=== PATIENT | female | born 1985 | race Caucasian/White ===

== ENCOUNTER 2016-03-23 20:20 | Inpatient (IN) | payer MEDICAID ==
[~2016-03-23] VITALS: Ht 157.5 cm; Wt 88.4 kg
[~2016-03-23 20:20] MED LIST: FERR27TA PO; PREN1TAB49 PO; [UNRECOGNIZED DRUG - CODE] PO
[2016-03-23 21:01] VITALS: BP 129/79; PULSE 84; RESP 20; Ht 157.5 cm; Wt 88.4 kg
[2016-03-23 21:22] LABS: URINE BLOOD (Dip) POC Negative (NEGATIVE)
[2016-03-23] MEDS ORDERED: ACETAMINOPHEN 325 MG TAB PO ONE (22:00)
--- NOTE | 2016-03-23 23:14 | RADRPT ---
PROCEDURE: US evaluation of amniotic fluid volume. CLINICAL INDICATION: Pelvic pain. TECHNIQUE: Multiple sonographic images of the gravid uterus were obtained utilizing carlson-scale minnie ging. Sagittal and transverse images were obtained. The images were reviewed on a PACS workstation . JOANN was measured. COMPARISON: No prior studies are available for comparison. FINDINGS: There is a single live intrauterine . heart rate is 134 beats per minute. Position is cephalic. Placenta is fundal grade III with no abruption or previa. JOANN is 12.0 cm. (Normal = 5-20 cm.) IMPRESSION: 1. JOANN is 12.0 cm. RPTAT: QQ .Maxime Stark MD, MD Date Time Electronically viewed and signed by .Maxime Stark MD, on 03/23/2016 23:14 .R/
[2016-03-23] MEDS ORDERED: IBUPROFEN 600 MG TAB PO PRN (23:30)
[2016-03-23] MEDS ORDERED: OXYTOCIN 30 UNITS/LR 500 ML IV SCH ×2 (23:30)
[2016-03-23] MEDS ORDERED: MISOPROSTOL 200 MCG TAB PR PRN (23:30)
[2016-03-23] MEDS ORDERED: BUTORPHANOL 2 MG INJ IV PRN (23:30)
[2016-03-23] MEDS ORDERED: LACTATED RINGER'S 1,000 ML IV PRN (23:30)
[2016-03-23] MEDS ORDERED: CARBOPROST 250 MCG INJ IM PRN (23:30)
[2016-03-23] MEDS ORDERED: LIDOCAINE 1% (MPF) 30 ML INJ INJ PRN (23:30)
[2016-03-23] MEDS ORDERED: METHYLERGONOVINE 0.2 MG INJ IM PRN (23:30)
[2016-03-23] MEDS ORDERED: OXYTOCIN 30 UNITS/LR 500 ML IV PRN (23:30)
[2016-03-24 00:15] LABS: BASOPHILS % 0.5 % (0.0-2.0); EOSINOPHILS # 0.2 10^3/ul (0.0-0.5); EOSINOPHILS % 1.7 % (0.0-7.0); HEMATOCRIT 35.7 % (37.0-47.0); LYMPHOCYTES # 2.3 10^3/ul (0.8-2.9); LYMPHOCYTES % 22.2 % (15.0-51.0); MEAN CORPUSCULAR HGB CONC 33.7 g/dl (32.0-37.0); MEAN CORPUSCULAR VOLUME 88.9 fl (82.0-101.0); MEAN PLATELET VOLUME 9.4 fl (7.4-10.4); MONOCYTE # 0.6 10^3/ul (0.3-0.9); MONOCYTES % 5.4 % (0.0-11.0); NEUTROPHIL # 7.1 10^3/ul (1.6-7.5); NEUTROPHILS % 70.2 % (39.0-77.0); PLATELET COUNT 141 10^3/UL (140-440); RED BLOOD COUNT 4.01 10^6/ul (4.20-5.40); RED CELL DISTRIBUTION WIDTH 13.7 % (11.5-14.5); UNCORRECTED WBC 10.2 10^3/ul (4.8-10.8); WHITE BLOOD COUNT 10.2 10^3/ul (4.8-10.8)
[2016-03-24 00:31] LABS: CONDITION 1; INR 0.95; PROTIME 12.7 Sec (12.2-14.2)
[2016-03-24 00:32] LABS: PARTIAL THROMBOPLASTIN TIME 27.8 Sec (25.0-35.0)
[2016-03-24] MEDS: LACTATED RINGER'S 1,000 ML IV SCH ×4 (01:28→18:28)
[2016-03-24] MEDS ORDERED: NALOXONE (0.4 MG/ML) INJ IV PRN (01:30)
[2016-03-24] MEDS ORDERED: DIPHENHYDRAMINE 50 MG INJ IV PRN (01:30)
[2016-03-24] MEDS ORDERED: ONDANSETRON 4 MG INJ IV PRN (01:30)
[2016-03-24] MEDS ORDERED: FENTAnyl 2MCG/ML-ROPIV 0.2% 100 ML ONE (01:36)
[2016-03-24] MEDS: FENTAnyl 2MCG/ML-ROPIV 0.2% 100 ML BAG EPI SCH ×3 (03:33→16:24)
--- NOTE | 2016-03-24 05:49 | HP ---
Date/Time of Note Date/Time of Note DATE: 03/24/16 TIME: 05:43 OB - History Hx of Present Free Text/Dictation 30 Year-old with SIUP at 393/7 presents with a chief complaint of ucs. She has been receiving her care with *. She states good movement. She denies nausea, vomiting, shortness of breath, chest pain, and abdominal pain between contractions, headache, visual changes, vaginal bleeding or LOF. Risk factor: - Low ROBERTO-A : 4 Para: 2 Spontaneous : 1 Therapeutic : 0 Care: Good Care Ultrasounds: Normal mid trimester US Obstetrical Complications: Other (low ROBERTO-A) Medical Complications: None, Gastrointestinal Past Family/Social History * Past Medical, Surgical, Family and Obstetric Histories reviewed from chart. OB Admission Exam Vital Signs Vital Signs Vital Signs Date Time Temp Pulse Resp B/P Pulse Ox O2 Delivery O2 Flow Rate FiO2 03/23/16 21:01 98.4 84 20 129/79 Room Air Physical Exam HEENT: WNL Heart: Rhythm Normal Lungs: Clear Abdomen: WNL Extremities: Normal Reflexes: Normal Cervical Dilatation: 3cm Effacement: 75% Station: -2 Membranes: Intact Heart Rate: 140's Accelerations: Accelerations Present Decelerations: No Decelerations Varibility: Moderate Contractions on Admission: < 5 Minutes Apart Last 72 hours Lab Results CBC & BMP 03/23/16 23:35 OB Assessment/Plan Other plan: 23 Year-old with SIUP at 39 2/7 in active labor - FHR: No sign of metabolic acidosis- Category I - Continuous EFM, toco - CBC, blood type and screen - Analgesia options with R/B/A discussed in detail with patient - Epidural per patient request - Please see the orders Admission, procedures, expectations, risks and possible complications have been discussed in detail with the patient. Risk of vaginal delivery including but not limited to bleeding, infection, cervical laceration, placental retention, injury to fetus, blood transfusion, blood transfusion related infection, risk of anesthesia, adhesion, cervical laceration, episiotomy/laceration, possible delivery with risk of bleeding, infection, injury to other organs ( bowel, bladder, ureter, vessels, nerves), injury to fetus, blood transfusion, blood transfusion related infection, risk of anesthesia, scar and hernia formation, needs for future , removal of uterus or any other indicated surgery discussed with the patient. She expressed understanding and repeats the risks. All of her questions were answered; all appropriate consents will be signed. PHYSICIAN'S VERIFICATION OF INFORMED CONSENT-NVD The patient was counseled regarding the procedure, its indications, risks, potential complications and alternatives and any questions were answered. Consent was obtained. PLANNED PROCEDURE/TREATMENT: Vaginal delivery with possible vacuum/forceps delivery episiotomy, repair of laceration possible delivery PHYSICIAN'S VERIFICATION OF INFORMED CONSENT FOR BLOOD TRANSFUSION. There is a reasonable possibility that blood transfusion will be necessary as a result of the patient's procedure. I have discussed the following with the patient/patient's legal product sales representative: An explanation of the benefits and risks of the transfusion of blood or blood products and the possible alternatives. Al questions have been answered to the patient's/patients legal representatives satisfaction. INFORMED CONSENT: The patient has been informed of: - The nature of the proposed care, treatment, services, medications, interventions or procedures. - Potential benefits, risks or side effects, including potential problems related to recuperation. - The likelihood of achieving care treatment and service goals. - Reasonable alternatives to the proposed care, treatment and service. - The relevant risks, benefits and side effects related to alternatives, including the possible results of not receiving care, treatment and services. - When indicated, any limitations on the confidentiality of information learned from or about the patient. - If appropriate, the risks, benefits and alternatives of the drugs to be used for sedation/analgesia including moderate sedation. - If appropriate, patient has been provided information on the risks, benefits and alternatives to the transfusion of blood and/or blood products. MD MUSTAPHA Munoz SEDI Mar 24, 2016 05:48
[2016-03-24] MEDS ORDERED: FENTAnyl 50 MCG/ML VIAL ONE (09:18)
--- NOTE | 2016-03-24 19:27 | LDN ---
Date/Time of Note Date/Time of Note DATE: 03/24/16 TIME: 19:24 Delivery Summary of a viable over intact perineum Placenta Delivered: Spontaneously, Intact & Complete Meconium: none Perineum intact?: No Perineal laceration: 1 Perineal laceration repair: superficial perineal laceration was repaired in normal fashion with 2 0 Chromic Anesthesia type: Epidural Estimated blood loss: 300 Sponge & Needle done & correct: Yes All needle counts correct: Yes Any foreign bodies felt in the: No Problems: Infant Delivery Information Sex Sex: male Apgars 1 Minute: 9 5 Minute: 9 Suctioning Nose & mouth suctioned at lazaro: Yes Delee suction performed: No Umbilical Cord Umbilical cord with: 3 Vessels Cord presentations: nuchal cord Nuchal cord present X: 1 Cord Blood was obtained: Yes Mother & Baby Disposition Disposition Mom & Baby to Maternity; Good: Yes (mother and baby were recovered in good condition ) Mom transferred to: Other (maternity ) Baby to NICU: No ELENA DORMAN MD Mar 24, 2016 19:27
--- NOTE | 2016-03-24 20:44 | DELSUM ---
Delivery Summary A-C Datetime Report Generated by CPN: 03/24/2016 20:43 DELIVERY PERSONNEL [employer] Assistant: Gerardo, DaggerFoil Groupy Auto Mechanic Supervisor: PARK MATERNAL INFORMATION Delivery Anesthesia: Epidural Medications in Delivery: [id number] UNITS IN LR Estimated Blood Loss (ml): 300 Placenta Cultured: No Maternal Complications: None LABOR SUMMARY EDC: 03/27/2016 00:00 EDC: 03/23/2016 00:00 EDC: 03/17/2016 00:00 EDC: 03/27/2016 00:00 No. Babies in Womb: 1 Attempted: No Labor Anesthesia: Epidural LABOR INFORMATION Reason for Induction: Not Applicable Onset of Labor: 03/23/2016 22:56 Complete Dilatation: 03/24/2016 18:50 Oxytocin: Augmentation Group B Beta Strep: Negative Steroids Given: None Reason Steroids Not Administered: Not Applicable MEMBRANES Membranes Rupture Method: Artificial Rupture of Membranes: 03/24/2016 14:08 Length of Rupture (hr): 4.90 Amniotic Fluid Color: Clear Amniotic Fluid Amount: Moderate Amniotic Fluid Odor: Normal STAGES OF LABOR Stage 1 hr: 19 Stage 1 min: 54 Stage 2 hr: 0 Stage 2 min: 12 Stage 3 hr: 0 Stage 3 min: 3 Total Time in Labor hr: 20 Total Time in Labor min: 9 VAGINAL DELIVERY Episiotomy: None Laceration Extension: First Degree Laceration Type: Perineal Laceration Repair: Not Applicable Initial Vag Sponge Count: 20 Final Vag Sponge Count: 20 Initial Vag Sharps Count: 1 Final Vag Sharps Count: 2 Sponge Count Correct: Yes Sharps Count Correct: Yes BABY A INFORMATION Infant Delivery Date/Time: 03/24/2016 19:02 Method of Delivery: Vaginal Method of Delivery: Vaginal Born in Route : No : N/A Forceps: N/A Vacuum Extraction: N/A Shoulder Dystocia : N/A SHOULDER DYSTOCIA BABY A Infant Delivery Date/Time: 03/24/2016 19:02 PRESENTATION/POSITION BABY A Presentation: Cephalic Cephalic Presentation: Vertex Vertex Position: Left Occipital Anterior Breech Presentation: N/A PLACENTA INFORMATION BABY A Placenta Delivery Time : 03/24/2016 19:05 Placenta Method of Delivery: Spontaneous Placenta Status: Delivered SCORES BABY A Heart Rate 1 min: >100 bpm Resp Effort 1 min: Good Cry Reflex Irritability 1 min: Cough/Sneeze/Pulls Away Muscle Tone 1 min: Active Motion Color 1 min: Blue/Pale SCORE 1 MIN: 8 Heart Rate 5 min: >100 bpm Resp Effort 5 min: Good Cry Reflex Irritability 5 min: Cough/Sneeze/Pulls Away Muscle Tone 5 min: Active Motion Color 5 min: Body [place], Extremit Blue SCORE 5 MIN: 9 INFORMATION BABY A Gestational Age at Delivery: 39.4 Gestational Status: Full Term- 39- 40.6 Weeks Outcome : Liveborn Condition : Stable Infant Sex: Male Infant Sex: Male IDENTIFICATION/MEDS BABY A ID Band Number: [id number] ID Band Location: Right Leg; Left Arm Sensor Applied: Yes Sensor Number: [id number] Sensor Location : Cord Clamp Vitamin K Given : Not Given Erythromycin Given: Not Given WEIGHT/LENGTH BABY A Infant Birthweight (gm): 3590 Infant Weight (lb): 7 Weight (oz): 15 Infant Length (in): 20.00 Length (cm): 50.80 CORD INFORMATION BABY A No. Cord Vessels: 3 Nuchal Cord : Around Neck x1, Loose Cord Blood Taken: Yes Infant Suction: Mouth; Nose ASSESSMENT BABY A Infant Complications: None Physical Findings at Delivery: Within Normal Limits Infant Respirations: Appears Normal Tennis Racket Repairer/ALS Called : No Care By: ANY Transferred To: Remains with Mother
[2016-03-24 20:55] VITALS: BP 135/77; PULSE 76; RESP 19
--- NOTE | 2016-03-24 20:57 | DELSUM ---
Delivery Summary A-C Datetime Report Generated by CPN: 03/24/2016 20:56 DELIVERY PERSONNEL Canteen Operator: Gerardo, Espion Limitedy Final Inspector Movement Assembly: PARK MATERNAL INFORMATION Delivery Anesthesia: Epidural Medications in Delivery: [id number] UNITS IN LR Estimated Blood Loss (ml): 300 Placenta Cultured: No Maternal Complications: None LABOR SUMMARY EDC: 03/27/2016 00:00 EDC: 03/23/2016 00:00 EDC: 03/17/2016 00:00 EDC: 03/27/2016 00:00 No. Babies in Womb: 1 Attempted: No Labor Anesthesia: Epidural LABOR INFORMATION Reason for Induction: Not Applicable Onset of Labor: 03/23/2016 22:56 Complete Dilatation: 03/24/2016 18:50 Oxytocin: Augmentation Group B Beta Strep: Negative Steroids Given: None Reason Steroids Not Administered: Not Applicable MEMBRANES Membranes Rupture Method: Artificial Rupture of Membranes: 03/24/2016 14:08 Length of Rupture (hr): 4.90 Amniotic Fluid Color: Clear Amniotic Fluid Amount: Moderate Amniotic Fluid Odor: Normal STAGES OF LABOR Stage 1 hr: 19 Stage 1 min: 54 Stage 2 hr: 0 Stage 2 min: 12 Stage 3 hr: 0 Stage 3 min: 3 Total Time in Labor hr: 20 Total Time in Labor min: 9 VAGINAL DELIVERY Episiotomy: None Laceration Extension: First Degree Laceration Type: Perineal Laceration Repair: Not Applicable Initial Vag Sponge Count: 20 Final Vag Sponge Count: 20 Initial Vag Sharps Count: 1 Final Vag Sharps Count: 2 Sponge Count Correct: Yes Sharps Count Correct: Yes BABY A INFORMATION Infant Delivery Date/Time: 03/24/2016 19:02 Method of Delivery: Vaginal Method of Delivery: Vaginal Born in Route : No : N/A Forceps: N/A Vacuum Extraction: N/A Shoulder Dystocia : N/A SHOULDER DYSTOCIA BABY A Infant Delivery Date/Time: 03/24/2016 19:02 PRESENTATION/POSITION BABY A Presentation: Cephalic Cephalic Presentation: Vertex Vertex Position: Left Occipital Anterior Breech Presentation: N/A PLACENTA INFORMATION BABY A Placenta Delivery Time : 03/24/2016 19:05 Placenta Method of Delivery: Spontaneous Placenta Status: Delivered SCORES BABY A Heart Rate 1 min: >100 bpm Resp Effort 1 min: Good Cry Reflex Irritability 1 min: Cough/Sneeze/Pulls Away Muscle Tone 1 min: Active Motion Color 1 min: Blue/Pale SCORE 1 MIN: 8 Heart Rate 5 min: >100 bpm Resp Effort 5 min: Good Cry Reflex Irritability 5 min: Cough/Sneeze/Pulls Away Muscle Tone 5 min: Active Motion Color 5 min: Body [place], Extremit Blue SCORE 5 MIN: 9 INFORMATION BABY A Gestational Age at Delivery: 39.4 Gestational Status: Full Term- 39- 40.6 Weeks Outcome : Liveborn Condition : Stable Infant Sex: Male Infant Sex: Male IDENTIFICATION/MEDS BABY A ID Band Number: [id number] ID Band Location: Right Leg; Left Arm Sensor Applied: Yes Sensor Number: [id number] Sensor Location : Cord Clamp Vitamin K Given : Not Given Erythromycin Given: Not Given WEIGHT/LENGTH BABY A Infant Birthweight (gm): 3590 Infant Weight (lb): 7 Weight (oz): 15 Infant Length (in): 20.00 Length (cm): 50.80 CORD INFORMATION BABY A No. Cord Vessels: 3 Nuchal Cord : Around Neck x1, Loose Cord Blood Taken: Yes Infant Suction: Mouth; Nose ASSESSMENT BABY A Infant Complications: None Physical Findings at Delivery: Within Normal Limits Infant Respirations: Appears Normal Forepart Reducer/ALS Called : No Care By: ANY Transferred To: Remains with Mother
--- NOTE | 2016-03-24 20:57 | OPRPT ---
Intraop Record Datetime Report Generated by CPN: 03/24/2016 20:56 Datetime: 03/23/2016 21:00 Drug Allergies/Reactions: No Known Allergies (03/23/2016) Datetime: 02/05/2016 08:29 Food Allergies/Reactions: Denies Latex Allergies/Reactions: No Latex Allergies Datetime: 01/07/2016 08:07 Drug Allergies/Reactions: No Known Allergies (07/22/2014)
[2016-03-24] MEDS ORDERED: LACTATED RINGER'S 1,000 ML IV* SCH (21:29)
[2016-03-24] MEDS ORDERED: CARBOPROST 250 MCG INJ IM PRN (21:30)
[2016-03-24] MEDS ORDERED: OXYTOCIN 30 UNITS/LR 500 ML IV PRN (21:30)
[2016-03-24] MEDS ORDERED: DIBUCAINE 1% 30 GM OINT PR PRN (21:30)
[2016-03-24] MEDS ORDERED: METHYLERGONOVINE 0.2 MG INJ IM PRN (21:30)
[2016-03-24] MEDS ORDERED: ACETAMINOPHEN/CODEINE #3 TAB PO PRN (21:30)
[2016-03-24] MEDS ORDERED: ZOLPIDEM 5 MG TAB PO PRN (21:30)
[2016-03-24] MEDS ORDERED: LANOLIN 7 GM TUBE TOP PRN (21:30)
[2016-03-24] MEDS ORDERED: MISOPROSTOL 200 MCG TAB PR PRN (21:30)
[2016-03-24] MEDS: BENZOCAINE 20% 56 ML SPRAY TOP PRN (21:52)
[2016-03-24] MEDS: WITCH HAZEL/GLYCERIN PAD PR PRN (21:52)
[2016-03-24 22:00] VITALS: BP 127/75; PULSE 79; RESP 19
[2016-03-24] MEDS: ACETAMINOPHEN/CODEINE #3 TAB PO PRN (22:02)
[2016-03-24] MEDS: CEPHALEXIN 500 MG CAP PO SCH (23:46)
[2016-03-24] MEDS: IBUPROFEN 600 MG TAB PO SCH (23:46)
[2016-03-25 04:00] VITALS: BP 137/79; PULSE 61; RESP 19
[2016-03-25] MEDS: CEPHALEXIN 500 MG CAP PO SCH ×4 (05:47→23:40)
[2016-03-25] MEDS: IBUPROFEN 600 MG TAB PO SCH ×4 (05:47→23:40)
[2016-03-25 07:52] VITALS: BP 125/84; PULSE 63; RESP 20
[2016-03-25 07:57] LABS: BASOPHILS % 0.3 % (0.0-2.0); EOSINOPHILS # 0.2 10^3/ul (0.0-0.5); EOSINOPHILS % 1.6 % (0.0-7.0); HEMOGLOBIN 10.5 g/dl (12.0-16.0); LYMPHOCYTES # 2.7 10^3/ul (0.8-2.9); LYMPHOCYTES % 24.5 % (15.0-51.0); MEAN CORPUSCULAR HEMOGLOBIN 30.1 pg (29.0-33.0); MEAN CORPUSCULAR VOLUME 88.6 fl (82.0-101.0); MEAN PLATELET VOLUME 8.9 fl (7.4-10.4); MONOCYTE # 0.7 10^3/ul (0.3-0.9); MONOCYTES % 6.4 % (0.0-11.0); NEUTROPHIL # 7.3 10^3/ul (1.6-7.5); NEUTROPHILS % 67.2 % (39.0-77.0); PLATELET COUNT 115 10^3/UL (140-440); RED CELL DISTRIBUTION WIDTH 13.8 % (11.5-14.5); UNCORRECTED WBC 10.9 10^3/ul (4.8-10.8); WHITE BLOOD COUNT 10.9 10^3/ul (4.8-10.8)
[2016-03-25 07:59] LABS: CONDITION 1
[2016-03-25] MEDS: MAGNESIUM HYDROXIDE 30ML CUP PO SCH ×2 (08:20→20:36)
[2016-03-25] MEDS: SENNA/DOCUSATE NA (8.6MG/50MG) TAB PO SCH ×2 (08:20→20:36)
[2016-03-25] MEDS: BENZOCAINE 20% 56 ML SPRAY TOP PRN (08:21)
[2016-03-25] MEDS: ACETAMINOPHEN/CODEINE #3 TAB PO PRN (08:21)
[2016-03-25 16:42] VITALS: BP 111/79; PULSE 75; RESP 18
[2016-03-25 19:30] VITALS: BP 138/73; PULSE 79; RESP 18
--- NOTE | 2016-03-25 23:45 | DS ---
Date/Time of Note Date/Time of Note home in AM DATE: 03/25/16 TIME: 23:44 Obstetrical Discharge Record Final Diagnosis Final Diagnosis: Term delivered Other Final Diagnosis S/P vaginal delivery Vaginal Delivery Obstetrical Delivery: Spontaneous, Laceration, Repaired Condition on Discharge Physical Assessment Voiding: Yes Bowel Movement: Yes Breast: Soft, non-tender, Filling Fundus: Firm Abdomen and Incision: soft BS + Episiotomy: NA perineum: healing Calf Tenderness: No Patient Condition: Good ELENA DORMAN MD Mar 25, 2016 23:45
[2016-03-25] MEDS ORDERED: IBUP-1542 PO (23:47)
--- NOTE | 2016-03-25 23:47 | PD.PPDC ---
RETURN TO SERVICE INSPECTOR Discharge Instruction Provider Information Physician Information 30 y/o female had vaginal delivery Diagnosis Final Diagnosis: S/P vaginal delivery Condition Patient Condition: Good Diet Diet: Resume Regular Diet Activity/Restrictions Activity: Normal Activity May Shower Restrictions: Nothing in the Vagina Return to Work or School: May 11, 2016 Follow-up Follow-up with Physician: 4, Week/Weeks Provider Information: in clinic Return to clinic for ROBOTIC WELDER Instructions: Excessive Vaginal Bleeding OB Instructions: Breast Tenderness Depression ELENA DORMAN MD Mar 25, 2016 23:47
[2016-03-26] MEDS: WITCH HAZEL/GLYCERIN PAD PR PRN (02:17)
[2016-03-26] MEDS: BENZOCAINE 20% 56 ML SPRAY TOP PRN (02:17)
[2016-03-26 04:30] VITALS: BP 113/69; PULSE 70; RESP 18
[2016-03-26] MEDS: CEPHALEXIN 500 MG CAP PO SCH ×2 (05:58→12:44)
[2016-03-26] MEDS: IBUPROFEN 600 MG TAB PO SCH ×2 (05:58→12:44)
[2016-03-26 08:45] VITALS: BP 130/79; PULSE 67; RESP 19
[2016-03-26] MEDS ORDERED: DIPHTH/TET/ACEL PERTUSS (ADULT) 0.5 ML VIAL IM* ONE (09:00)
[2016-03-26] MEDS ORDERED: VARICELLA VACCINE LIVE/PF 1,350 UNIT/0.5 ML ML SC* ONE (09:00)
[2016-03-26] MEDS ORDERED: MEASLES,MUMPS,RUBELLA VACCINE INJ SC* ONE (09:00)
[2016-03-26] MEDS: MAGNESIUM HYDROXIDE 30ML CUP PO SCH (09:10)
[2016-03-26] MEDS: SENNA/DOCUSATE NA (8.6MG/50MG) TAB PO SCH (09:10)
== END 2016-03-26 16:54 | disposition home or self-care (01) | DRG 775 ==
LOC: OBT 20:20 → L-D 20:21 → OBT 23:25 → PP1 03-24 21:01
PROVIDERS: ADMIT Obstetrics & Gynecology; ATTEND Obstetrics & Gynecology
PROC: 10E0XZZ Delivery of Products of Conception, External Approach (ICD-10-PCS; principal; 2016-03-24)
PROC: 0HQ9XZZ Repair Perineum Skin, External Approach (ICD-10-PCS; 2016-03-24)
PROC: 3E00X4Z Introduction of Serum, Toxoid and Vaccine into Skin and Mucous Membranes, External Approach (ICD-10-PCS; 2016-03-26)
DX: O70.0 First degree perineal laceration during delivery (principal); Z23 Encounter for immunization; Z3A.39 39 weeks gestation of pregnancy; Z37.0 Single live birth
CPT/HCPCS: 36415; 62319; 76815; 81003; 85025; 85610; 85730; 86592; 86762; 86900; 86901; 90715; 90716; G0463; J2405; J2590; J3010; J7120